=== PATIENT | female | born 1950 | race Caucasian/White ===

== ENCOUNTER 2018-02-18 08:20 | Emergency (ER) | payer OTHER ==
[~2018-02-18] VITALS: Ht 157.5 cm; Wt 62.6 kg
[2018-02-18 08:20] VITALS: BP 135/85
--- NOTE | 2018-02-18 08:55 | NUR ---
Patient discharged to home in stable condition. Written and verbal after care instructions given. Patient verbalizes understanding of instruction.
== END 2018-02-18 08:54 | disposition home or self-care (01) ==
LOC: ER 08:21
DX: S13.8XXA Sprain of joints and ligaments of other parts of neck, initial encounter (principal); X58.XXXA Exposure to other specified factors, initial encounter; Y93.89 Activity, other specified; Y92.89 Other specified places as the place of occurrence of the external cause; Y99.8 Other external cause status
CPT/HCPCS: 99283; A4606; Z7610

== ENCOUNTER 2019-02-08 11:22 | Emergency (ER) | payer OTHER ==
[~2019-02-08] VITALS: Ht 157.5 cm; Wt 64.4 kg
[2019-02-08 11:31] VITALS: BP 166/80
[2019-02-08] MEDS ORDERED: KETOROLAC TROMETHAMINE INJ 60 MG/2 ML VIAL IM ONE ×2 (12:28→12:30)
[2019-02-08] MEDS ORDERED: MORPHINE SULFATE INJ 2 MG/ML DISP.SYRIN ONE (12:28)
[2019-02-08] MEDS ORDERED: LORAZEPAM INJ 2 MG/ML VIAL ONE (12:29)
[2019-02-08] MEDS ORDERED: MORPHINE SULFATE INJ 4 MG/ML DISP.SYRIN IM ONE (12:30)
[2019-02-08] MEDS ORDERED: LORAZEPAM INJ 2 MG/ML VIAL IM ONE (12:30)
== END 2019-02-08 13:14 | disposition home or self-care (01) ==
LOC: ER 11:25
DX: M54.32 Sciatica, left side (principal)
CPT/HCPCS: 96372 ×2; 99283; J1885; J2060; J2270